=== PATIENT | male | born 1960 | race Caucasian/White ===

== ENCOUNTER 2016-08-10 | Emergency (ER) | payer OTHER ==
[~2016-08-10] VITALS: Ht 185.4 cm; Wt 126.1 kg
[2016-08-10 00:14] VITALS: BP 101/57
--- NOTE | 2016-08-10 00:29 | PHYS DOC ---
Past Medical History Past Medical History: No Pertinent History, Hypertension Past Surgical History: Other Additional Past Surgical Histo: Back sugery, BILAT HIP SX Alcohol Use: Rarely Drug Use: None Adult General Chief Complaint Chief Complaint: LACERATION/AVULSION HPI HPI Patient is a 55 year old medical presents with right forearm laceration, patient states he was trying to turn the main water off when he slid and fell grabbing a metal awing which cut him. Review of Systems Review of Systems Constitutional: Denies fever or chills [] Eyes: Denies change in visual acuity, redness, or eye pain [] Musculoskeletal: Denies back pain or joint pain [] Integument: Right forearm laceration Neurologic: Denies headache, focal weakness or sensory changes [] Endocrine: Denies polyuria or polydipsia [] Current Medications Current Medications Current Medications Medications (Trade) Dose Ordered Sig/Tayo Start Time Stop Time Status Last Admin Dose Admin Acetaminophen/ Hydrocodone Bitart (Lortab 5/325) 1 tab 1X ONCE 08/10/16 00:30 08/10/16 00:31 DC Bupivacaine HCl (Marcaine 0.5%) 50 ml 1X ONCE 08/10/16 00:30 08/10/16 00:31 DC 08/10/16 00:30 50 ML Diphtheria/ Tetanus/Acell Pertussis (Boostrix) 0.5 ml ONCE ONCE 08/10/16 00:30 08/10/16 00:31 DC 08/10/16 00:30 0.5 ML Allergies Allergies Allergies Coded Allergies Type Severity Reaction Last Updated Verified No Known Drug Allergies 01/16/14 No Physical Exam Physical Exam Constitutional: Well developed, well nourished, no acute distress, non-toxic appearance. [] HENT: Normocephalic, atraumatic, bilateral external ears normal, oropharynx moist, no oral exudates, nose normal. [] Skin: Right forearm with a third-degree laceration approximately 12 cm long, this no tendon involvement. Full range of motion to the right forearm. +2 right radial pulse. Cap refill less than 2 seconds the right upper extremity. Adequate ulnar medial radial sensation to the right upper extremity. Back: No tenderness, no CVA tenderness. [] Extremities: No tenderness, no cyanosis, no clubbing, ROM intact, no edema. [] Neurologic: Alert and oriented X 3, normal motor function, normal sensory function, no focal deficits noted. [] Psychologic: Affect normal, judgement normal, mood normal. [] Current Patient Data Vital Signs Vital Signs Date Time Temp Pulse Resp B/P Pulse Ox O2 Delivery O2 Flow Rate FiO2 08/10/16 00:14 97.8 72 18 96 Room Air 97.8 EKG EKG [] Radiology/Procedures Radiology/Procedures Indication: [] Right forearm laceration Procedure: The patient was placed in the appropriate position and anesthesia around the laceration was bupivacaine 0.5%. The area was then cleaned with the 100 ML of normal saline and Betadine. The inner laceration was closed with 4 interrupted sutures using 3. 0 Vicryl. Exterior laceration was closed with 19 interrupted sutures using 3. 0 Vicryl The wound area was then dressed with nonstick dressing. Total repaired wound length: Approximately 12 cm Other Items: None The patient tolerated the procedure well Complications: None Course & Med Decision Making Course & Med Decision Making Pertinent Labs and Imaging studies reviewed. (See chart for details) Patient is in the ED with a 12 cm right forearm laceration. The laceration was closed as noted in procedures. He was given tetanus. He was provided wound care instructions as well as return precautions. Dragon Disclaimer Dragon Disclaimer This electronic medical record was generated, in whole or in part, using a voice recognition dictation system. Departure Departure Impression: Primary Impression: Laceration of forearm, right Disposition: 01 HOME, SELF-CARE Condition: STABLE Referrals: CHERYL ROBERT (PCP) Follow-up with your own doctor in 1-2 weeks as needed Patient Instructions: Laceration Care, Adult Additional Instructions: You have a laceration of the right forearm. Keep the area clean and dry. Apply Neosporin to the area twice a day. Monitor it for signs and symptoms of infection including increased redness warmth or odor drainage from the area and return to the ED if they occur. Scripts Hydrocodone/Apap 5-325 ([place] 5-325 Tablet)1 Each Tablet1-2 Tab PO Q4-6HRS #12 TAB Prov:JAQUI ESCOBEDO APRN 08/10/16 Problem Qualifiers Primary Impression: Laceration of forearm, right Encounter type: initial encounter Qualified Code: S51.811A - Laceration without foreign body of right forearm, initial encounter JAQUI ESCOBEDO APRN Aug 10, 2016 00:29
[2016-08-10] MEDS ORDERED: BUPIVACAINE 0.5% 50 ML VIAL. IJ ONE (00:30)
[2016-08-10] MEDS ORDERED: HYDROCODONE/APAP 5/325MG TABLET. PO ONE (00:30)
[2016-08-10] MEDS ORDERED: DIPHTH,PERTUSS(ACELL),TET TOX 0.5 ML DISP.SYRIN. VAX IM ONE (00:30)
[2016-08-10] MEDS ORDERED: HYDR-971 PO (01:21)
== END 2016-08-10 01:35 | disposition home or self-care (01) ==
LOC: ER
DX: S51.811A Laceration without foreign body of right forearm, initial encounter (principal); I10 Essential (primary) hypertension; Z23 Encounter for immunization; W01.0XXA Fall on same level from slipping, tripping and stumbling without subsequent striking against object, initial encounter; Y93.89 Activity, other specified; Y92.89 Other specified places as the place of occurrence of the external cause; Y99.8 Other external cause status
CPT/HCPCS: 12004; 90471; 90715; 99283; J3490